=== PATIENT | male | born 1980 | race Caucasian/White ===

== ENCOUNTER 2022-06-01 11:51 | Emergency (ER) | payer BC ==
[~2022-06-01] VITALS: Ht 188 cm; Wt 122.5 kg
--- NOTE | 2022-06-01 12:52 | NUR ---
BIBS C/O LEFT ANKLE SWELLING AND LEFT HEEL CUT X4DAYS. AMBULATORY, PLCED ON CHAIR1. SEEN AND EXAMINED BY DR LONGORIA.
[2022-06-01] MEDS ORDERED: CLIN300C12 PO (14:22)
[2022-06-01] MEDS ORDERED: CIPR-263 PO (14:22)
--- NOTE | 2022-06-01 14:45 | NUR ---
Patient discharged to home in stable condition. Written and verbal after care instructions given. Patient verbalizes understanding of instruction.
[2022-06-01 15:07] VITALS: BP 100/65
== END 2022-06-01 14:45 | disposition home or self-care (01) ==
LOC: ER 11:54
DX: L08.9 Local infection of the skin and subcutaneous tissue, unspecified (principal); E11.9 Type 2 diabetes mellitus without complications; I10 Essential (primary) hypertension; Z88.8 Allergy status to other drugs, medicaments and biological substances
CPT/HCPCS: 73610-TC; 73630-TC